=== PATIENT | male | born 1965 ===

== ENCOUNTER 2018-04-18 12:54 | Emergency (ER) | payer SELFPAY ==
--- NOTE | 2018-04-18 14:00 | RAD ---
PORTABLE CHEST ONE VIEW: 04/18/2018 1:38 p.m. HISTORY: Fever. Chest pain. FINDINGS: The heart size is enlarged. There is elevation of the right hemidiaphragm. The lungs are expanded w ithout focal areas of consolidation, pneumothorax, mitchell pulmonary edema, or pleural effusions. Ther e are degenerative changes in the spine. POS: C
== END 2018-04-18 13:43 | disposition home or self-care (01) ==
LOC: ERS 12:54
DX: J10.1 Influenza due to other identified influenza virus with other respiratory manifestations (principal); I10 Essential (primary) hypertension; F17.210 Nicotine dependence, cigarettes, uncomplicated; Z79.899 Other long term (current) drug therapy
CPT/HCPCS: 71045; 87804